=== PATIENT | female | born 1985 | race Asian ===

== ENCOUNTER → 2022-05-26 12:53 | Outpatient (CLI) | payer BC, SELFPAY ==
--- NOTE | ~2022-05-26 | US_ITS ---
Pelvic ultrasound. Clinical History: First trimester , pelvic pain Technique: Realtime transabdominal and transvaginal scanning of the pelvis was performed. Findings: The uterus is anteverted, and contains an intrauterine gestation. [place]-rump length of 1.8 cm corresponds to an estimated gestational age of 8 weeks 2 days. heart rate is 159 bpm. Yolk s ac present. Possible minimal subchorionic hemorrhage present. The right ovary measures 1.9 x 1.2 x 1.9 cm. No significant right ovarian or adnexal mass is seen. The left ovary measures 4.0 x 3.8 x 3.8 cm. Simple left ovarian cyst measures 3.1 cm in diameter. There is no evidence of free fluid in the cul de sac. Impression: Live intrauterine gestation with a pseudogestational age of 8 weeks 2 days. heart rate is 159 b pm. 3.1 cm simple left ovarian cyst. Possible minimal subchorionic hemorrhage. Reviewed, dictated and finalized at location [] ICE TECH/WELDER Impression: Live intrauterine gestation with a pseudogestational age of 8 weeks 2 days. Fet al heart rate is 159 bpm. 3.1 cm simple left ovarian cyst. Possible minimal subchorionic hemorrhage.
== END ==
PROVIDERS: PCP Nurse Practitioner; Visit Provider Nurse Practitioner
DX: Z34.91 Encounter for supervision of normal pregnancy, unspecified, first trimester (principal); R10.2 Pelvic and perineal pain; N83.202 Unspecified ovarian cyst, left side; Z3A.08 8 weeks gestation of pregnancy
CPT/HCPCS: 76801

== ENCOUNTER → 2022-06-19 09:58 | Outpatient (CLI) | payer BC, SELFPAY ==
--- NOTE | ~2022-06-19 | US_ITS ---
EXAMINATION: US OB <= 14 weeks fetus DATE: 06/19/2022 10:31 INDICATION: Subchorionic hematoma during first trimester TECHNIQUE: Real-time pelvic transabdominal and transvaginal ultrasound was performed. COMPARISON: 05/26/2021 FINDINGS: The uterus measures 10.5 x 9.7 x 8.4 cm. There is an intrauterine gestational sac. No pers istent subchorionic hematoma is seen. A yolk sac is identified. heart motion is identified thuy uring 168 beats per minute (bpm) by M-mode Doppler. The crown rump length measures 4.9 cm, whic h correlates with an estimated gestational age of 11 weeks and 5 day(s) (+/-) 7 day(s). The right ovary is not visualized however no right adnexal abnormality is seen. The left ovary measur es 3.1 x 3.1 x 3.5 cm and contains a 2.6 cm cyst. There is normal vascular flow in the left ovary. Th ere is no free fluid in the pelvis. IMPRESSION: 1. Live intrauterine with an estimated gestational age of 11 weeks and 5 day(s) (+/-) 7 day (s) and an estimated delivery date of 01/03/2023. 2. No persistent subchorionic hematoma identified. Reviewed, dictated and finalized at location B. ETIC TESTER IMPRESSION: 1. Live intrauterine with an estimated gestational age of 11 weeks an d 5 day(s) (+/-) 7 day(s) and an estimated delivery date of 01/03/2023. 2. No persistent subchorionic hematoma identified.
== END ==
PROVIDERS: PCP Obstetrics & Gynecology Gynecology; Visit Provider Obstetrics & Gynecology Gynecology
DX: O36.8910 Maternal care for other specified fetal problems, first trimester, not applicable or unspecified (principal); Z3A.11 11 weeks gestation of pregnancy
CPT/HCPCS: 76801

== ENCOUNTER 2022-12-24 08:02 | Observation (INO) | payer OTHER, SELFPAY ==
[2022-12-24 10:00] VITALS: BMI 26.9
--- NOTE | 2022-12-24 10:54 | PC.NURSE ---
Patient admitted for observation with complaints of contractions. MD called unit before patient's arrival with orders to check patient's cervix and monitor her for 2 hours. If no adequate cervical change has occurred, verbal orders received for discharge. Patient was 3.5/80/-2 upon arrival. Cervical exam 2 hours later was 4/80/-2 with a reactive tracing and contractions irregular but roughly every 5-7 minutes. Patient given discharge instructions with instructions to come back when contractions have increasing intensity and are 3-5 minutes apart. Patient verbalizes understanding and agrees with plan of care.
--- NOTE | 2022-12-24 10:59 | LDADM ---
This patient, Keyla Blevins, was admitted to Labor/Delivery/Recovery 103 on 12/24/22 at 08:02. Plans for labor, pain management and were discussed with patient. Patient/family oriented to hospital policies and general routines including ID bracelet, bed and alarms, visiting hours, pain management, procedures, bathroom and other care routines, personal items, smoking policy, room service/diet and guest tray routines, security routines, and visiting hours. Patient/Family are encouraged to report perceived risks to care and to ask questions if they do not understand what they are told or what they should do. See OBIX for further documentation.
--- NOTE | 2022-12-26 15:27 | PM.OBTRLD ---
OB - Triage/Final Diagnosis Visit Information Reason for evaluation: threatened labor Comments/Additional reasons for admission: I have assessed the risk for this patient, Keyla Blevins, and determined that she would benefit from observation care.
== END 2022-12-24 10:43 | disposition home or self-care (01) ==
PROVIDERS: Admitting Provider Obstetrics & Gynecology; PCP Family Medicine; Visit Provider Obstetrics & Gynecology
DX: O47.1 False labor at or after 37 completed weeks of gestation (principal); Z3A.39 39 weeks gestation of pregnancy
CPT/HCPCS: G0378; G0379

== ENCOUNTER 2022-12-24 12:01 | Inpatient (IN) | payer OTHER, SELFPAY ==
[2022-12-24] VITALS (85 sets, daily range): BP systolic 82–148; BP diastolic 34–115; PULSE 64–189; RESP 16; TEMP 36.2–37.7; O2SAT 93–100
[2022-12-24] MEDS: LACTATED RINGERS 1,000 ML 125 ML IV CONT ×2 (12:20→13:56)
[2022-12-24 12:34] LABS: Basophils Percent Auto 0.3 % (0.2-1.2); Eosinophils Absolute Auto 0.1 K/mm3 (0-0.3); Eosinophils Percent Auto 0.8 % (0-4.4); Hematocrit 37.7 % (37.0-47.0); Hemoglobin 12.6 g/dL (12.0-15.0); Immature Granulocyte Absolute 0.02 K/mm3 (0.00-0.031); Immature Granulocyte Percent A 0.2 % (0-0.5); Lymphocytes Absolute Auto 2.03 K/mm3 (0.9-3.2); Lymphocytes Percent Auto 21.8 % (18.3-44.2); Mean Corpuscular HGB Conc 33.4 g/dl (32-36); Mean Corpuscular Hemoglobin 30.5 pg (26-34); Mean Corpuscular Volume 91.3 fl (80-100); Mean Platelet Volume 9.8 fl (7.4-10.4); Monocytes Absolute Auto 0.4 K/mm3 (0.1-0.6); Monocytes Percent Auto 4.1 % (2.6-8.5); Neutrophils Absolute Auto 6.8 K/mm3 (1.3-6.7); Neutrophils Percent Auto 72.8 % (45.5-73.1); Platelet Count Result 282 k/mm3 (150-375); Red Blood Count 4.13 M/mm3 (4.2-5.4); Red Cell Distribution Width 13.7 % (11.5-14.5); White Blood Count 9.3 K/mm3 (4.5-10.0)
--- NOTE | 2022-12-24 12:44 | LDADM ---
This patient, Keyla Blevins, was admitted to Labor/Delivery/Recovery 106 on 12/24/22 at 12:01. Plans for labor, pain management and were discussed with patient. Patient/family oriented to hospital policies and general routines including ID bracelet, bed and alarms, visiting hours, pain management, procedures, bathroom and other care routines, personal items, smoking policy, room service/diet and guest tray routines, security routines, and visiting hours. Patient/Family are encouraged to report perceived risks to care and to ask questions if they do not understand what they are told or what they should do. See OBIX for further documentation.
--- NOTE | 2022-12-24 13:07 | WPDANESEPP ---
Anes - Eval Pre Procedure Procedure: Labor Epidural Date/Time: 12/24/22 13:07 Surgeon: Mady Preop Diagnosis: Labor Pain Pre Op Diagnosis: Labor Patient Data Age: 37 Gender: F Height: Weight: Last Vital Signs Pulse 99 12/24/22 13:06 BP 127/61 12/24/22 13:06 Pulse Ox 99 12/24/22 13:06 Allergies Allergy/AdvReac Type Severity Reaction Status Date / Time No Known Allergies Allergy Verified 12/24/22 11:01 Home Medications Medication Instructions Recorded Confirmed Type vit 168-iron 27 mg-folic 1 cap PO DAILY 07/17/22 12/24/22 History acid 800 mcg-omega3 235 mg capsule (One-A-Day -1) cholecalciferol (vitamin D3) 1,250 1,250 mcg PO WEEKLY 12/11/22 12/24/22 History mcg (50,000 unit) tablet ferrous sulfate 325 mg (65 mg 325 mg PO DAILY 12/11/22 12/24/22 History iron) tablet omeprazole 20 mg capsule,delayed 20 mg PO DAILY 12/11/22 12/24/22 History release Laboratory Tests 12/24/22 12:29 WBC 9.3 K/mm3 (4.5-10.0) RBC 4.13 L M/mm3 (4.2-5.4) Hgb 12.6 g/dL (12.0-15.0) Hct 37.7 % (37.0-47.0) MCV 91.3 fl (80-100) MCH 30.5 pg (26-34) MCHC 33.4 g/dl (32-36) RDW 13.7 % (11.5-14.5) Plt Count 282 k/mm3 (150-375) MPV 9.8 fl (7.4-10.4) Immature Gran % (Auto) 0.2 % (0-0.5) Neut % (Auto) 72.8 % (45.5-73.1) Lymph % (Auto) 21.8 % (18.3-44.2) [place] % (Auto) 4.1 % (2.6-8.5) Eos % (Auto) 0.8 % (0-4.4) Baso % (Auto) 0.3 % (0.2-1.2) Lymph # (Auto) 2.03 K/mm3 (0.9-3.2) [place] # (Auto) 0.4 K/mm3 (0.1-0.6) Eos # (Auto) 0.1 K/mm3 (0-0.3) Baso # (Auto) 0.0 K/mm3 (0.0-0.1) Abs Immat Gran (auto) 0.02 K/mm3 (0.00-0.031) Absolute Neuts (auto) 6.8 H K/mm3 (1.3-6.7) Absolute Nucleated RBC 0.0 K/mm3 (0.0-0.012) Nucleated RBC % 0.0 % (0.0-0.2) RPR Pending : gestational age (QIANA 12/31/22, ) Patient hx anesthesia problems: none Family hx anesthesia problems: none Results Review: All pre-operative results and documents have been reviewed as part of the pre-operative evaluation. COUNT INCLUDES [facility] Family History Family History Father Diabetes mellitus Legal Guardian Diabetes mellitus Social History Social History Smoking status: Never smoker Substance use: never Lack of Transportation: No Lack of Food: Never True Current Housing: I Have Housing Concerned About Future Housing: No Difficulty Paying Gas/Electric Bills: No Difficulty Paying for Meds: No Currently Unemployed: No Education: Master's Degree or Higher Difficulty w/ Childcare or Family Care: No Spiritual care concerns: No Exam Day of Procedure 12/24/22 13:07 Patient weight: normal Heart: regular rate and rhythm Lungs: normal air movement Airway: Mallampati scale class II Neurological: alert and oriented
[2022-12-24] MEDS: PHENYLEPHRINE 1,000 MCG/10 ML SYRINGE 100 MCG IV PUSH (13:56)
[2022-12-24] MEDS: OXYTOCIN 30 UNITS/NS 500 ML 30 UNITS/500 ML BAG IV CONT (14:30)
--- NOTE | 2022-12-24 17:33 | WPDHPUPDATE1 ---
History and Physical Update Update Date/Time: 12/24/22 17:33 History and Physical has been reviewed, including an updated exam of the patient. There are NO changes in the patient's condition. Risks, benefits, and alternatives have been discussed and questions answered. Patient agrees to proceed with procedure.
--- NOTE | 2022-12-24 17:33 | WPDOBADMIT ---
Obstetrics - Admit Note Admission Note: record reviewed. No pertinent additions to the history and/or any subsequent changes in the physical findings that are not consistent with the expected course of the were found. Additions to the history and/or subsequent changes in the physical findings follow. None.
--- NOTE | 2022-12-24 17:33 | PM.OBPRVD ---
OB - Delivery Note Procedure Route of delivery: Episiotomy description: None Laceration Description: Perineal - 2nd Degree and Vaginal Delivery repair: vicryl and chromic Specimen: Yes Quantitative Blood Loss (ml): 500 Anesthesia type: Epidural Disposition: Floor Complications: None Narrative: patient prepped draped in usual manner for this procedure. Maternal expulsive efforts delivered vertex over intact perineum in the rest of baby delivered without difficulty. Cord clamped cut and placenta delivered spontaneously. Second-degree laceration with partial third-degree extension was noted. Vicryl was used to approximate the rectal sphincter 3 separate interrupted [id number] sutures. With good approximation noted. Vaginal laceration was then closed using 2-0 chromic in a running interlocking manner to approximate the vaginal tissue deep tissue in a subcuticular layer. Left vaginal wall laceration was also rendered hemostatic using 2-0 chromic running interlocking manner. Small amount of oozing and therefore packing was left in place which will be removed in 20-30 minutes. At this point the procedure was considered terminated with immediate postop condition of other baby both excellent. Baby Weeks of gestation at delivery: 39 Infant gender: Male Weight (pounds): 5 Weight (ounces): 12 presentation: vertex position: Right Occiput Anterior Placenta delivery description: Spontaneous Cord Vessel Description: 3 Vessels score one minute: 8 score five minutes: 9
[2022-12-24] MEDS: OXYTOCIN 30 UNITS/NS 500 ML 30 UNITS/500 ML BAG 125 UNITS IV CONT (18:10)
[2022-12-24] MEDS: BENZOCAINE 20% AER SPR (*SP) 56 GM CAN 1 SPRAY TOPICAL (19:37)
[2022-12-24] MEDS: WITCH HAZEL 40 PADS 1 PAD TOPICAL (19:37)
--- NOTE | 2022-12-24 20:49 | OBPPTRN ---
12/24/20221956-Patient transferred to post room #286 via wheelchair. Support person present. Oriented to unit, room, information board, rooming in, admission packet and security measures. Patient verbalizes understanding.
[2022-12-24] MEDS: IBUPROFEN 600 MG TABLET PO (21:07)
[2022-12-24] MEDS: DOCUSATE SODIUM 100 MG CAPSULE PO (21:10)
[2022-12-25] MEDS: IBUPROFEN 600 MG TABLET PO ×2 (04:09→18:59)
[2022-12-25 05:58] LABS: Hematocrit 28.6 % (37.0-47.0); Hemoglobin 9.6 g/dL (12.0-15.0)
[2022-12-25 08:20] VITALS: BP 112/66; PULSE 94; RESP 16; TEMP 36.5; O2SAT 100
[2022-12-25] MEDS: MULTIVIT/MIN/PREN/FOL AC/IRON TABLET 1 TAB PO (08:56)
[2022-12-25] MEDS: DOCUSATE SODIUM 100 MG CAPSULE PO ×2 (08:56→18:59)
[2022-12-25] MEDS: POLYSACCHARIDE IRON COMPLEX 150 MG CAPSULE PO ×2 (08:56→18:59)
[2022-12-25 09:44] LABS: Rapid Plasma Reagin Non-Reactive (NonReactive)
--- NOTE | 2022-12-25 09:57 | P.PNOB_ITS ---
OB - PN: Subj Subjective Date/time seen: 12/25/22 09:57 Patient comments: no complaints and pain well controlled baby status: doing well OB - PN: Obj Data Labs 12/25/22 05:43 Labs: Laboratory Results - last 24 hr 12/24/22 12/25/22 12:29 05:43 WBC 9.3 RBC 4.13 L Hgb 12.6 9.6 L D Hct 37.7 28.6 L MCV 91.3 MCH 30.5 MCHC 33.4 RDW 13.7 Plt Count 282 MPV 9.8 Immature Gran % (Auto) 0.2 Neut % (Auto) 72.8 Lymph % (Auto) 21.8 [place] % (Auto) 4.1 Eos % (Auto) 0.8 Baso % (Auto) 0.3 Lymph # (Auto) 2.03 [place] # (Auto) 0.4 Eos # (Auto) 0.1 Baso # (Auto) 0.0 Abs Immat Gran (auto) 0.02 Absolute Neuts (auto) 6.8 H Absolute Nucleated RBC 0.0 Nucleated RBC % 0.0 RPR Non-reactive Blood Type B Positive Antibody Screen Negative OB - PN A/P Plan day: 1 Plan: routine care Comments: due to partial 3rd degree laceration will add Colace b.i.d. Time Spent With Patient Time: Total time spent is greater than 50% in coordination of care (as documented) at patient's floor/unit and/or counseling patient: Exam : Bimanual exam- vagina & uterus: other (Uterus firm, nt @U)
--- NOTE | 2022-12-25 09:58 | PM.OBDSVD ---
DS: Admitting Diagnosis Discharge Date 12/26/22 Admitting Diagnosis labor DS: Discharge Diagnosis Discharge Diagnosis (1) (normal spontaneous vaginal delivery): Code(s): O80 - Encounter for full-term uncomplicated delivery Status: Acute OB - DS: Summary OB Procedures : Ultrasound OB Procedures Intrapartum: Spontaneous Vag Delivery OB Procedures: : None Peripartum Data Delivery Method: Natural Vaginal Laceration Description: Vaginal - 3rd Degree complications: none Status at Discharge Functional status at discharge: independent ambulation Overall status at discharge: patient is progressing back to baseline Time Spent with Patient Time attestation: Total time spent providing and/or coordinating discharge services: DS: Data Data Completed and Pending Pending studies at discharge: Pending at discharge 12/24/22 17:13 Surgical [PTH] Routine Labs on day of discharge: Labs from last 24 hours 12/25/22 12/24/22 05:43 12:29 WBC 9.3 RBC 4.13 L Hgb 9.6 L D 12.6 Hct 28.6 L 37.7 MCV 91.3 MCH 30.5 MCHC 33.4 RDW 13.7 Plt Count 282 MPV 9.8 Immature Gran % (Auto) 0.2 Neut % (Auto) 72.8 Lymph % (Auto) 21.8 [place] % (Auto) 4.1 Eos % (Auto) 0.8 Baso % (Auto) 0.3 Lymph # (Auto) 2.03 [place] # (Auto) 0.4 Eos # (Auto) 0.1 Baso # (Auto) 0.0 Abs Immat Gran (auto) 0.02 Absolute Neuts (auto) 6.8 H Absolute Nucleated RBC 0.0 Nucleated RBC % 0.0 RPR Non-reactive Blood Type B Positive Antibody Screen Negative Discharge Plan Discharge Attending physician on discharge: Shelli Earl Discharging Clinician: Shelli Earl Anticipated Discharge Date/Time: 12/26/22 09:59 Patient Disposition: Home, Self-Care Activity: may shower and pelvic rest Diet: regular Patient Instructions: Antibiotic Form Stand Alone Forms: General Discharge Information Follow-up/Referrals: Shelli Earl MD [Physician] - 6 Weeks Discharge Medications: Continued One-A-Day -1 27 mg iron- 800 mcg-235 mg capsule 1 cap PO DAILY ferrous sulfate 325 mg (65 mg iron) Tablet 325 mg PO DAILY omeprazole 20 mg Capsule,Delayed Release(Dr/Ec) 20 mg PO DAILY cholecalciferol (vitamin D3) 1,250 mcg (50,000 unit) Tablet 1,250 mcg PO WEEKLY Date of admission: 12/24/22 12:01 Primary Care Provider: Valorie Hickman Admitting Provider: Shelli Earl Attending physician on admission: Shelli Earl Condition: Stable Care Plan Goals: Delivered by Dr. Patricia
[2022-12-25 11:40] VITALS: BP 111/65; PULSE 85; RESP 16; TEMP 36.6; O2SAT 100
--- NOTE | 2022-12-25 11:44 | WPDANLDPN2 ---
Anes-Prog Note L&D Date/Time: 12/25/22 11:44 Neuro status: Neuro function grossly intact. Vital Signs: Last Vital Signs Temp 36.5 C 12/25/22 08:20 Pulse 94 12/25/22 08:20 Resp 16 12/25/22 08:20 BP 112/66 12/25/22 08:20 Pulse Ox 100 12/25/22 08:20 O2 Del Method Room Air 12/24/22 23:05 Pain score (VAS): 0 I/O: Intake & Output 12/24/22 12/25/22 12/25/22 23:59 07:59 15:59 Intake Total 1500 Output Total 690 Balance 810 Patient feedback: Patient satisfied with anesthetic care.
--- NOTE | 2022-12-25 12:57 | PC.NURSE ---
1210 Introductions were made, then consulted with patient to assess needs related to . Mother led the conversation with her?plans to feed?her and the?experience so far. Resources provided for inpatient and outpatient services with the feeding sheet, mom/baby guide and name written on the white board. Mother voiced understanding of information and will call with next attempt to feed . Reported to the primary RN.
[2022-12-25 13:15] VITALS: BP 113/65; PULSE 65; RESP 16; TEMP 37; O2SAT 97
--- NOTE | 2022-12-25 16:21 | PC.NURSE ---
1440 Consulted with patient to assist with . Mother led the conversation with her?plans to feed?her infant and the?experience so far. Mother works well with her with encouragement and education. Encouraged understanding of the benefits of skin to skin (demonstrating unwrapping and placing upright on her chest), stimulating with massage touch, changing positions to encourage wakefulness, how to watch for early feeding cues, responsive feeding, feeding on demand (aiming for 8-12 times in 24 hours, about every 2-3 hours), milk production, building/maintaining a milk supply, duration of feeding, signs of adequate intake/output and how to record on the feeding sheet. Reviewed positioning and ear, shoulder, hip alignment, supporting the breast to facilitate a deep latch, asymmetrical latch (off-center), leading with the chin with a big, open, wide gape and body close to mother. Infant latched optimally to the right and left breast in football/cross cradle position. Education given to mother of how to visualize suck/swallow ratios and listen for drinking at the breast. was able to maintain latch without discomfort to mother using nipple weiss. Nursed for brief period of time 5 minutes n both breasts with this attempt. Nipple care reviewed with optimal latch and good positioning. Reminding mother of comfort measures of healing with a warm and wet washcloth to rinse breast, then leave open to air-dry as needed. Reviewed good handwashing when or touching the breast/nipples to prevent infection. Resources used to facilitate learning were used with the visual handouts/mom and baby guide. Mother voiced understanding of skin to skin, stimulating with massage touch, responsive feedings, hand expressed colostrum, talking to to encourage if it has been 2 -2.5 hours since the start of the last , to call if infant does not latch, or if there is discomfort with . Resources provided for inpatient/outpatient with business card, feeding sheet and the mom/baby guide. Parents voiced understanding of information, demonstrated learning and will call if there is a request for assistance. Reported to primary RN.
[2022-12-25 18:53] VITALS: BP 119/67; PULSE 92; RESP 16; TEMP 37.2; O2SAT 99
--- NOTE | 2022-12-26 07:40 | PM.OBPNVD ---
OB - PN: Subj Subjective Date/time seen: 12/26/22 07:40 Patient comments: no complaints and pain well controlled baby status: doing well OB - PN: Obj Data Labs 12/25/22 05:43 Labs: Laboratory Results - last 24 hr 12/24/22 12:29 RPR Non-reactive OB - PN A/P Plan day: 2 Plan: routine care, discharge home, follow up 6 weeks and other (plans condoms until vasectomy) Time Spent With Patient Time: Total time spent is greater than 50% in coordination of care (as documented) at patient's floor/unit and/or counseling patient: Exam : Bimanual exam- vagina & uterus: other (Uterus firm, nt @U)
[2022-12-26] MEDS: POLYSACCHARIDE IRON COMPLEX 150 MG CAPSULE PO (09:00)
[2022-12-26] MEDS: PANTOPRAZOLE 40 MG TABLET PO (09:00)
[2022-12-26] MEDS: IBUPROFEN 600 MG TABLET PO (09:00)
[2022-12-26] MEDS: MULTIVIT/MIN/PREN/FOL AC/IRON TABLET 1 TAB PO (09:00)
[2022-12-26] MEDS: DOCUSATE SODIUM 100 MG CAPSULE PO (09:00)
[2022-12-26 09:42] VITALS: BP 109/57; PULSE 90; RESP 18; TEMP 36.6; O2SAT 100
[2022-12-26] MEDS: WITCH HAZEL 40 PADS 1 PAD TOPICAL (10:00)
--- NOTE | 2022-12-26 13:03 | PC.NURSE ---
1020 Introductions were made, then consulted with patient to assess needs related to . Mother led the conversation with her?plans to feed?her and the?experience so far. RN assisted mother with waking up baby and latching to her left breast with the nipple shield. Mother requested to rent a pump, she is being discharged today and her pump has not arrived yet. Forms completed and mother gave her credit card information, she is requesting rental for 1 month or less. Mother given Pump #[id number]. Copy of the rental agreement given to mother and the original copy placed in office. Mother voiced understanding of information and will call if there is a request for assistance. Reported to the primary RN.
[2022-12-27 11:38] VITALS: BP 118/87; PULSE 93; RESP 18; TEMP 36.9; O2SAT 100
== END 2022-12-26 12:00 | disposition home or self-care (01) | DRG 807 ==
LOC: ANHLDR 20:00 → ANHOB2 20:01
PROVIDERS: Admitting Provider Obstetrics & Gynecology; PCP Family Medicine; Visit Provider Obstetrics & Gynecology Gynecology
DX: O77.0 Labor and delivery complicated by meconium in amniotic fluid (principal); Z37.0 Single live birth; Z3A.39 39 weeks gestation of pregnancy; O70.1 Second degree perineal laceration during delivery
CPT/HCPCS: 36415; 85014; 85018; 85025; 86592; 86850; 86900; 86901; 88307; A9270; G0378; G0379; J2371; J2590; J2795; J7120

== ENCOUNTER 2023-01-22 02:19 | Emergency (ER) | payer OTHER, SELFPAY ==
[2023-01-22 02:22] VITALS: BP 112/63; PULSE 86; RESP 16; TEMP 36.2; O2SAT 100
--- NOTE | 2023-01-22 03:02 | ED.GENADULT ---
HPI - General Adult General Chief complaint: Allergic Reaction Stated complaint: rash Time Seen by Provider: 01/22/23 02:28 History of Present Illness HPI narrative: This is a 37-year-old female presenting ED with chief complaint of a rash. Yesterday the patient developed an urticarial rash over her legs abdomen and arms. She has no known allergies. No new exposures to lotions perfumes etc.. No new foods. Patient denies difficulty breathing / wheezing, mouth involvement, GI symptoms or dizziness/ lightheadedness. Patient is breast-feeding a 1-month-old. Related Data Home Medications Medication Instructions Recorded Confirmed vit 168-iron 27 mg-folic 1 cap PO DAILY 07/17/22 12/24/22 acid 800 mcg-omega3 235 mg capsule (One-A-Day -1) cholecalciferol (vitamin D3) 1,250 1,250 mcg PO WEEKLY 12/11/22 12/24/22 mcg (50,000 unit) tablet ferrous sulfate 325 mg (65 mg 325 mg PO DAILY 12/11/22 12/24/22 iron) tablet omeprazole 20 mg capsule,delayed 20 mg PO DAILY 12/11/22 12/24/22 release Allergies Allergy/AdvReac Type Severity Reaction Status Date / Time No Known Allergies Allergy Verified 01/22/23 02:20 [facility] Family History Family History Father Diabetes mellitus Legal Guardian Diabetes mellitus Social History Social History Smoking status: Never smoker Substance use: never Lack of Transportation: No Lack of Food: Never True Current Housing: I Have Housing Concerned About Future Housing: No Difficulty Paying Gas/Electric Bills: No Difficulty Paying for Meds: No Currently Unemployed: No Education: Master's Degree or Higher Difficulty w/ Childcare or Family Care: No Spiritual care concerns: No Exam Narrative: APPEARANCE: No apparent distress. Head: no swelling of the lips tongue or uvula EYES: EOMI, NOSE: Atraumatic NECK: Trachea midline RESPIRATORY: No increased rate of breathing, clear to auscultation CARDIOVASCULAR: RRR, ABDOMINAL: Non-distended MUSCULOSKELETAl: No obvious deformities NEURO: Alert. Moving 4/4 extremities SKIN:: Urticarial rash over the legs abdomen and arms PSYCHIATRIC: Normal affect Course Vital Signs Vital signs: Vital Signs Temperature 97.2 F L 01/22/23 02:22 Pulse Rate 86 01/22/23 02:22 Respiratory Rate 16 01/22/23 02:22 Blood Pressure 112/63 01/22/23 02:22 Pulse Oximetry 100 01/22/23 02:22 Oxygen Delivery Room Air 01/22/23 02:22 Temperature 97.2 F L 01/22/23 02:22 Pulse Rate 86 01/22/23 02:22 Respiratory Rate 16 01/22/23 02:22 Blood Pressure 112/63 01/22/23 02:22 Pulse Oximetry 100 01/22/23 02:22 Oxygen Delivery Room Air 01/22/23 02:27 Medical Decision Making MDM Narrative Medical decision making narrative: -Presentation: 37-year-old presenting with an urticarial rash. No evidence of anaphylaxis. 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 -Hx from independent Sources: at bedside -Interventions: 10 mg dexamethasone, 10 mg loratadine, 20 mg Pepcid -Shared decision making / Disposition: patient will be discharged with primary care follow-up. Vital Signs Vital Signs: Vital Signs Temperature 97.2 F L 01/22/23 02:22 Pulse Rate 86 01/22/23 02:22 Respiratory Rate 16 01/22/23 02:22 Blood Pressure 112/63 01/22/23 02:22 Pulse Oximetry 100 01/22/23 02:22 Oxygen Delivery Room Air 01/22/23 02:22 Temperature 97.2 F L 01/22/23 02:22 Pulse Rate 86 01/22/23 02:22 Respiratory Rate 16 01/22/23 02:22 Blood Pressure 112/63 01/22/23 02:22 Pulse Oximetry 100 01/22/23 02:22 Oxygen Delivery Room Air 01/22/23 02
[2023-01-22] MEDS: LORATADINE 10 MG TABLET PO (03:10)
[2023-01-22] MEDS: FAMOTIDINE 20 MG TABLET PO (03:10)
== END 2023-01-22 03:16 | disposition home or self-care (01) ==
PROVIDERS: Emergency Provider Emergency Medicine; PCP Family Medicine
DX: L50.9 Urticaria, unspecified (principal)
CPT/HCPCS: 96372; 99283; A9270; J1100

== ENCOUNTER → 2023-04-17 10:16 | Outpatient (CLI) | payer OTHER, SELFPAY ==
--- NOTE | ~2023-04-17 | US_ITS ---
EXAMINATION: US abdomen complete DATE: 04/17/2023 10:33 INDICATION: Unspecified abdominal pain TECHNIQUE: Multiple grayscale and Doppler ultrasound images of the abdomen were obtained. COMPARISON: None available FINDINGS: The head and body of the pancreas are normal. The pancreatic tail is obscured by bowel gas. The liver is normal with normal echogenicity and echotexture. No surface nodularity. Normal hepatope te flow in the main portal vein. The gallbladder is packed with stones. No gallbladder wall thickeni ng or pericholecystic fluid are identified. The normal common bile duct measures 3 mm. There was no s onographic Lewis sign. The visualized portions of the aorta and inferior vena cava are normal. The spleen is normal in appearance and measures 11.5 cm. The right kidney measures 9.2 x 4.1 x 4.5 cm . The left kidney measures 11.5 x 3.8 x 5.1 cm. The kidneys demonstrate normal parenchymal echogenici ty. There is no hydronephrosis. IMPRESSION: 1. Cholelithiasis without additional findings of cholecystitis. Reviewed, dictated and finalized at location L. ACTOR FILLER
== END ==
PROVIDERS: PCP Nurse Practitioner; Visit Provider Nurse Practitioner
DX: K80.20 Calculus of gallbladder without cholecystitis without obstruction (principal)
CPT/HCPCS: 76700

== ENCOUNTER 2023-04-27 09:22 | Outpatient (CLI) | payer OTHER, SELFPAY | END 2023-04-27 09:23 | disposition home or self-care (01) | LOC: ANHSURGERY 09:26 | PROVIDERS: PCP Nurse Practitioner; Visit Provider Surgery | DX: Z01.810 Encounter for preprocedural cardiovascular examination (principal); K80.20 Calculus of gallbladder without cholecystitis without obstruction | CPT/HCPCS: 36415; 86850; 86900; 86901 ==

== ENCOUNTER 2023-05-01 01:05 | Day surgery (SDC) | payer OTHER, SELFPAY ==
[2023-04-25 10:37] VITALS: BMI 21.9
--- NOTE | 2023-04-25 10:42 | PC.NURSE ---
Report to the Outpatient Waiting Room, entrance under the green pavilion located off [facility], at time 11:00 on date 05/01/23. Planned Procedure Time: 1:00. Time changes happen often and if your time is changed the preop area will call you the afternoon before. - You and your visitor will be asked to self-screen and do not enter if you have any COVID symptoms. - A mask is optional within the hospital at this time. Patients may have clear liquids (water, carbonated beverages, clear teas, apple juice) until 3 hours prior to surgery with a maximum of 20 ounces. - No food from midnight until time of surgery Take the following medications with a SIP of water the morning of surgery: NONE DO NOT STOP ANY OF YOUR OTHER PRESCRIPTION MEDICATIONS PRIOR TO SURGERY ?EXCEPT THE FOLLOWING Medications to discontinue per physician: VITAMINS Date to take last dose: 04/27/23 Please no make-up, nail andorran, hairspray, perfume, deodorant, or body powder the day of surgery. No jewelry (including any body piercings) or valuables the day of surgery, leave them at home. Please take a shower or bath the night before, or the morning of, surgery with an antibacterial soap. Wear comfortable, loose fitting clothing. - Jewelry must be removed prior to entering the operating room. Rings and piercings that are not removed may be cut off. - The hospital will not accept responsibility for valuables. - Please leave all valuables, including medications, at home the day of surgery. If you are going home after surgery, a licensed cdl flatbed truck driver must drive you home. - NO public transportation without another adult if you receive anesthesia. - We recommend that an adult stay with you for 24 hours following discharge. - We also recommend that you do not drive, make important decision, drink alcoholic beverages, or take any drugs that were not prescribed by your health care provider for at least 24 hours after your discharge time. Follow any additional instructions given to you from your surgeon. If you or anyone in your household have experienced Covid symptoms in the past week, please notify your surgeon or the nurse liaison at the phone number below for possible testing. Telephone instructions given to PT - TOMÁS TAO and asked if any additional questions and then verbalized understanding. Patient advised to call surgeon office or pre surgery nurse liaison [phone] if any additional questions.
--- NOTE | 2023-04-30 13:58 | WPDANESEPPF ---
Anes - Initial Pre Proc Eval Procedure: Operation Date: 05/01/23 13:00 Proposed Procedures p Laparoscopic Cholecystectomy, Possible Open - Steve Avila DO Date/Time: 04/30/23 13:58 Surgeon: Steve Avila DO Pre Op Diagnosis: symp cholelithiasis Patient Data Age: 38 Gender: F Height: 1.63 m Weight: 58.1 kg Allergies Allergy/AdvReac Type Severity Reaction Status Date / Time No Known Allergies Allergy Verified 05/01/23 12:13 Home Medications Medication Instructions Recorded Confirmed Type vit 168-iron 27 mg-folic 1 cap PO DAILY 07/17/22 04/30/23 History acid 800 mcg-omega3 235 mg capsule (One-A-Day -1) hydrocortisone 2.5 % topical cream 1 applic RECTAL DAILY PRN 03/07/23 04/30/23 Rx with perineal applicator hemorrhoids #30 grams (Anusol-HC) omeprazole 20 mg capsule,delayed 40 mg PO DAILY 03/07/23 04/30/23 History release docusate sodium 100 mg capsule 100 mg PO BID 04/25/23 04/30/23 History (Colace) Patient hx anesthesia problems: none Family hx anesthesia problems: none Results Review: All pre-operative results and documents have been reviewed as part of the pre-operative evaluation. [facility] Past Medical History Medical History Anxiety GERD (gastroesophageal reflux disease) Hyperlipidemia Family History Family History Father Diabetes mellitus Legal Guardian Diabetes mellitus Social History Social History Smoking status: Never smoker Alcohol intake: current Alcohol use details: VERY RARE - NOT CURRENTLY Substance use: never Substance use type: does not use Lack of Transportation: No Lack of Food: Never True Current Housing: I Have Housing Concerned About Future Housing: No Difficulty Paying Gas/Electric Bills: No Difficulty Paying for Meds: No Currently Unemployed: No Education: Master's Degree or Higher Difficulty w/ Childcare or Family Care: No Living arrangements: with family Occupation/Education: occupation 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 Informed Consent: The patient's anesthetic plan and its attendant risks and benefits were discussed with the patient/family/POA. Questions were solicited and answers provided to the satisfaction of the patient/family/POA.
[2023-05-01] VITALS (13 sets, daily range): BP systolic 96–123; BP diastolic 59–76; PULSE 59–93; RESP 14–20; TEMP 36.2–36.6; O2SAT 100
[2023-05-01] MEDS: KETOROLAC 15 MG/ML VIAL (*BKC) IV PUSH (12:00)
[2023-05-01] MEDS: ACETAMINOPHEN 500 MG TABLET 1000 MG PO (12:00)
[2023-05-01] MEDS: LACTATED RINGERS 1,000 ML 30 ML IV CONT ×2 (12:12→14:17)
--- NOTE | 2023-05-01 13:04 | WPDHPUPDATE1 ---
History and Physical Update Update Date/Time: 05/01/23 13:04 History and Physical has been reviewed, including an updated exam of the patient. There are NO changes in the patient's condition. Risks, benefits, and alternatives have been discussed and questions answered. Patient agrees to proceed with procedure.
[2023-05-01] MEDS: ceFAZolin 2 GM/D5W 50 ML 2 GM/50 ML BAG IVPB (13:16)
[2023-05-01] MEDS: BUPIVACAINE/EPINEPHRINE 0.5% 50 ML VIAL 30 ML INFILTRATE (13:41)
--- NOTE | 2023-05-01 14:16 | W.PM.PROC2 ---
Procedure Note - Detailed Date of Procedure 05/01/23 Pre-op Diagnosis Symptomatic cholelithiasis Post-op Diagnosis Same Procedure Performed Laparoscopic cholecystectomy Surgeon Steve Avila, DO Anesthesia General and Local (0.5% bupivacaine) Indications This is a 38-year-old woman who presented with intermittent epigastric abdominal pain over the past year. The patient states that her symptoms were worse after her recent . She was experiencing acid reflux and was trying to take omeprazole, but she still would occasionally have breakthrough abdominal pains. A CT showed evidence of cholelithiasis. No other abnormalities were noted. Discussions were made with the patient about treatment options and decision was made to proceed with laparoscopic cholecystectomy, possible open. Findings Laparoscopic cholecystectomy was performed. The patient was found to have a few pericholecystic adhesions and multiple gallstones within the gallbladder. The cystic duct appeared normal in size. No other significant abnormalities were noted. The gallbladder was removed and sent to the lab for pathology. Description of Procedure Procedure as well as risks, benefits, and alternatives were discussed with patient. Written consent was obtained and placed in chart prior to procedure. The patient was brought back to surgical suite. Patient was placed in supine position on operating table. Time-out was done to confirm patient and procedure. Patient was then intubated by the anesthesia department. Abdomen was prepped and draped in sterile fashion using chlorhexidine prep. 0.5% bupivacaine with epinephrine was infiltrated at each site of incision. An 11 millimeter vertical incision was made at the inferior portion of the umbilicus using a 15 blade scalpel. Blunt dissection was carried down to the linea alba. The linea alba was then incised using a 15 blade scalpel. The peritoneum was then bluntly entered. An 11 millimeter trocar was inserted and carbon dioxide insufflation was used to create a pneumoperitoneum. The camera was inserted and the abdomen was inspected. The patient was placed in reverse Trendelenberg position and rotated slightly to the left. A 5 millimeter incision was made in the epigastric region, and a 5 millimeter trocar was inserted under direct visualization. Two 5 millimeter incisions were made in the right upper quadrant, and two 5 millimeter trocars were inserted under direct visualization. The gallbladder was identified and grasped at the fundus and retracted superiorly. It was then grasped at the infundibulum retracted laterally. Careful dissection around the neck of the gallbladder was performed using blunt dissection with a [place] grasper and hook electrocautery. The cystic duct was identified, and a window was created behind it. The cystic artery was also identified and a window was created behind it. The critical view of safety was identified, visualizing the cystic duct running directly into the neck of the gallbladder, and the cystic artery running directly into the wall of the gallbladder. A 5 millimeter clip manager mortgage was then used to place 2 clips proximally and 1 clip distally on both the cystic duct and cystic artery. They were then both transected using endoscopic scissors. Once safely away from the kiah hepatitis, the gallbladder was dissected free from the liver bed using hook electrocautery. Hemostasis was achieved along the way. The gallbladder was removed completely and then removed through the umbilical port. The liver bed was then inspected. Hemostasis appeared adequate, and our clips appeared secure. The area was gently irrigated with sterile saline. No other abnormalities were seen. The patient was flattened out in bed, and 1 final inspection was made around the abdominal cavity. The ports were then removed under direct visualization, the camera was removed, and the pneumoperitoneum was released. The fascia o
[2023-05-01] MEDS: ONDANSETRON INJ 4 MG/2 ML VIAL IV PUSH (14:43)
[2023-05-01] MEDS: fentaNYL CITRATE INJ (*CRX) 100 MCG/2 ML VIAL 25 MCG IV PUSH ×2 (14:54→15:24)
[2023-05-01] MEDS: SCOPOLAMINE 1.5 MG PATCH TRANSDERM (15:01)
[2023-05-01] MEDS: diphenhydrAMINE HCl INJ 50 MG/ML VIAL 25 MG IV PUSH ×2 (15:07→15:54)
== END 2023-05-01 18:13 | disposition home or self-care (01) ==
PROVIDERS: PCP Nurse Practitioner; Visit Provider Surgery
PROC: 0FT44ZZ Resection of Gallbladder, Percutaneous Endoscopic Approach (ICD-10-PCS; CPT 47562; principal; 2023-05-01 13:00)
DX: K80.10 Calculus of gallbladder with chronic cholecystitis without obstruction (principal); E78.5 Hyperlipidemia, unspecified
CPT/HCPCS: 47562; 36415; 86850; 86900; 86901; 88304; A9270; J0690; J1100; J1200; J1885; J2250; J2405; J2704; J3010; J7120

== ENCOUNTER 2023-10-08 22:52 | Emergency (ER) | payer OTHER, SELFPAY ==
[2023-10-08 22:53] VITALS: BP 102/62; PULSE 109; RESP 20; TEMP 36.3; O2SAT 99
[2023-10-09 01:03] LABS: Basophils Percent Auto 0.3 % (0.2-1.2); Eosinophils Absolute Auto 0.1 K/mm3 (0-0.3); Eosinophils Percent Auto 0.7 % (0-4.4); Hematocrit 39.2 % (37.0-47.0); Hemoglobin 12.9 g/dL (12.0-15.0); Immature Granulocyte Absolute 0.01 K/mm3 (0.00-0.031); Immature Granulocyte Percent A 0.1 % (0-0.5); Lymphocytes Absolute Auto 0.73 K/mm3 (0.9-3.2); Lymphocytes Percent Auto 10.6 % (18.3-44.2); Mean Corpuscular HGB Conc 32.9 g/dl (32-36); Mean Corpuscular Volume 88.1 fl (80-100); Mean Platelet Volume 9.5 fl (7.4-10.4); Monocytes Absolute Auto 0.3 K/mm3 (0.1-0.6); Monocytes Percent Auto 4.4 % (2.6-8.5); Neutrophils Absolute Auto 5.8 K/mm3 (1.3-6.7); Neutrophils Percent Auto 83.9 % (45.5-73.1); Platelet Count Result 245 k/mm3 (150-375); Red Blood Count 4.45 M/mm3 (4.2-5.4); Red Cell Distribution Width 11.9 % (11.5-14.5); White Blood Count 6.9 K/mm3 (4.5-10.0)
[2023-10-09 01:14] LABS: Alanine Aminotransferase 19 U/L (6-35); Albumin Level 4.5 g/dL (3.5-5.1); Alkaline Phosphatase 76 U/L (38-126); Anion Gap 6 mmol/L (4-12); Aspartate Amino Transferase 26 U/L (14-36); Bilirubin,Total 0.6 mg/dL (0.2-1.3); Blood Urea Nitrogen 12 mg/dL (7-17); Carbon Dioxide 25 mmol/L (22-30); Chloride 104 mmol/L (98-107); Estimated CRCL calculation 94 ml/min; Estimated Glomerular Filt Rate > 60; Glucose 112 mg/dL (65-110); Lipase 67 U/L (23-300); Potassium 3.9 mmol/L (3.4-5.0); Sodium 135 mmol/L (137-145)
[2023-10-09 01:15] VITALS: BP 104/67; PULSE 91; RESP 16; O2SAT 100
[2023-10-09] MEDS: SODIUM CHLORIDE 0.9% IV 2,000 ML 999 ML IV CONT (01:20)
[2023-10-09] MEDS: FAMOTIDINE 20 MG/2 ML VIAL IV PUSH (01:20)
[2023-10-09] MEDS: ONDANSETRON INJ 4 MG/2 ML VIAL IV PUSH (01:20)
[2023-10-09 01:30] VITALS: BP 103/64; PULSE 87; RESP 16; O2SAT 100
[2023-10-09 01:45] VITALS: BP 93/55; PULSE 91; RESP 16; O2SAT 100
[2023-10-09 01:56] VITALS: BP 93/55; PULSE 94; RESP 11; O2SAT 100
[2023-10-09 02:00] VITALS: BP 93/56; PULSE 97; RESP 16; O2SAT 100
[2023-10-09 02:15] VITALS: BP 104/50; PULSE 102; RESP 11; O2SAT 100
--- NOTE | 2023-10-09 02:27 | ED.GENADULT ---
HPI - General Adult General Chief complaint: Nausea/Vomiting/Diarrhea Stated complaint: vomiting and diarrhea Time Seen by Provider: 10/09/23 00:47 History of Present Illness HPI narrative: This is a 38-year-old female presenting with 1 day of nausea/vomiting/diarrhea. patient also has a sick child at home with similar symptoms. She had subjective fevers, no chest pain difficulty breathing or urinary symptoms. Related Data Home Medications Medication Instructions Recorded Confirmed vit 168-iron 27 mg-folic 1 cap PO DAILY 07/17/22 05/24/23 acid 800 mcg-omega3 235 mg capsule (One-A-Day -1) docusate sodium 100 mg capsule 100 mg PO BID 04/25/23 05/24/23 (Colace) Allergies Allergy/AdvReac Type Severity Reaction Status Date / Time No Known Allergies Allergy Verified 05/17/23 14:19 [facility] Past Medical History Medical History (Updated 10/09/23 @ 02:32 by Nico Thompson MD) Anxiety GERD (gastroesophageal reflux disease) Hyperlipidemia Surgical History Surgical History (Updated 05/17/23 @ 14:18 by Diana Palomo MA) History of laparoscopic cholecystectomy 05/01/23 [facility] Family History Family History Father Diabetes mellitus Legal Guardian Diabetes mellitus Social History Social History Smoking status: Never smoker Alcohol intake: current Alcohol use details: VERY RARE - NOT CURRENTLY Substance use: never Substance use type: does not use Lack of Transportation: No Lack of Food: Never True Current Housing: I Have Housing Concerned About Future Housing: No Difficulty Paying Gas/Electric Bills: No Difficulty Paying for Meds: No Currently Unemployed: No Education: Master's Degree or Higher Difficulty w/ Childcare or Family Care: No Living arrangements: with family Occupation/Education: occupation 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 Head: atraumatic. EYES: EOMI, NOSE: Atraumatic NECK: Trachea midline RESPIRATORY: No increased rate of breathing CARDIOVASCULAR: RRR, ABDOMINAL: Non-distended Soft nontender no CVA tenderness MUSCULOSKELETAl: No obvious deformities NEURO: Alert. Moving 4/4 extremities SKIN:: Warm, dry. Normal color PSYCHIATRIC: Normal affect Course Vital Signs Vital signs: Vital Signs Temperature 97.3 F L 10/08/23 22:53 Pulse Rate 109 H 10/08/23 22:53 Respiratory Rate 20 10/08/23 22:53 Blood Pressure 102/62 10/08/23 22:53 Pulse Oximetry 99 10/08/23 22:53 Oxygen Delivery Room Air 10/08/23 22:53 Temperature 97.3 F L 10/08/23 22:53 Pulse Rate 109 H 10/08/23 22:53 Respiratory Rate 20 10/08/23 22:53 Blood Pressure 102/62 10/08/23 22:53 Pulse Oximetry 99 10/08/23 22:53 Oxygen Delivery Room Air 10/08/23 22:53 Medical Decision Making MDM Narrative Medical decision making narrative: -Course: 38-year-old female presenting nausea vomiting diarrhea. Given fluid resuscitation/antiemetics. She is now tolerating p.o.. Abdominal exam benign. Laboratory studies within normal limits. Patient discharged with Zofran return precautions. -DDX includes but is not limited to: Viral syndrome, gastroenteritis, gallbladder disease, appendicitis -Independent interpretation of studies: labs reviewed within normal limits -Interventions: 2 L normal saline, Zofran, Pepcid -Shared decision making / Disposition: discharged. Vital Signs Vital Signs: Vital Signs Temperature 97.3 F L 10/08/23 22:53 Pulse Rate 109 H 10/08/23 22:53 Respiratory Rate 20 10/08/23 22:53 Blood Pressure 102/62 10/08/23 22:53 Pulse Oximetry 99 10/08/23 22:53 Oxygen Delivery Room Air 10/08/23 22:53 Temperature 97.3 F L 10/08/23 22:53 Pulse Rate 109 H 10/08/23 22:53
[2023-10-09 02:58] LABS: Appearance Urine Clear (Clear); Bilirubin Urine Negative (Negative); Blood Urine Negative (Negative); Color Urine Yellow (Yellow); Glucose Urine UA Negative (Negative); Ketones Urine 3+ mg/dL (Negative); Leukocyte Esterase Ur Negative LEU/UL (Negative); Nitrate Urine Negative (Negative); Protein Urine Negative (Negative); Specific Grav Ur 1.021 (1.001-1.035); Urobilinogen Urine 0.2 mg/dL (<2.0); pH Urine 5.5 (5.0-9.0)
[2023-10-09 03:00] LABS: Add Urine Microscopic? YES
== END 2023-10-09 03:11 | disposition home or self-care (01) ==
PROVIDERS: Physician Assistant; Emergency Provider Emergency Medicine; PCP Nurse Practitioner
DX: K52.9 Noninfective gastroenteritis and colitis, unspecified (principal); E78.5 Hyperlipidemia, unspecified; K21.9 Gastro-esophageal reflux disease without esophagitis; Z90.49 Acquired absence of other specified parts of digestive tract
CPT/HCPCS: 36415; 80053; 81001; 81025; 83690; 85025; 96361; 96374; 96375; 99284; J2405; J7030